=== PATIENT | female | born 1940 | race Caucasian/White ===

== ENCOUNTER → 2016-08-09 | Outpatient (CLI) | payer MEDICARE, OTHER | END | disposition home or self-care (01) | LOC: GMAJ 12:59 | PROVIDERS: ATTEND Family Medicine | DX: E03.9 Hypothyroidism, unspecified (principal) ==

== ENCOUNTER 2016-10-28 05:42 | Day surgery (SDC) | payer MEDICARE, OTHER ==
[2016-10-28] MEDS ORDERED: LIDOCAINE 1% MPF 5 ML VIAL ONE ×2 (10:15→10:28)
[2016-10-28] MEDS ORDERED: SODIUM CHLORIDE 0.9% 10 ML VIAL ONE (10:15)
[2016-10-28] MEDS ORDERED: methylPREDNISolone ACETATE 80 MG/ML VIAL ONE (10:15)
[2016-10-28] MEDS ORDERED: SODIUM BICARBONATE VIAL 50 MEQ/50 ML VIAL ONE (10:16)
[2016-10-28 14:04] VITALS: O2SAT 98
[2016-10-28 14:39] VITALS: BP 157/70; TEMP 97.2
== END 2016-10-28 14:40 | disposition home or self-care (01) ==
LOC: AMB 05:42
PROVIDERS: ATTEND Anesthesiology Pain Medicine
DX: M51.16 Intervertebral disc disorders with radiculopathy, lumbar region (principal); F32.9 Major depressive disorder, single episode, unspecified; Z79.899 Other long term (current) drug therapy
CPT/HCPCS: 62323; 76000; J1030

== ENCOUNTER → 2016-11-05 | Outpatient (CLI) | payer MEDICARE, OTHER | END | disposition home or self-care (01) | LOC: YCFC.O 15:02 | PROVIDERS: ATTEND Anesthesiology Pain Medicine | DX: Z79.891 Long term (current) use of opiate analgesic (principal) ==

== ENCOUNTER 2016-11-18 12:27 | Day surgery (SDC) | payer MEDICARE, OTHER ==
[2016-11-18] MEDS ORDERED: methylPREDNISolone ACETATE 80 MG/ML VIAL INJ ONE ×2 (14:28→14:31)
[2016-11-18] MEDS ORDERED: LIDOCAINE 1% MPF 5 ML VIAL INJ ONE ×3 (14:28→14:31)
[2016-11-18] MEDS ORDERED: SODIUM CHLORIDE 0.9% 10 ML VIAL INJ ONE (14:31)
[2016-11-18 14:47] VITALS: BP 158/81; TEMP 98.4; O2SAT 97
== END 2016-11-18 14:45 | disposition home or self-care (01) ==
LOC: AMB 12:27 → EDSTATUS 13:00 → AMB 14:45
PROVIDERS: ATTEND Anesthesiology Pain Medicine
DX: M51.16 Intervertebral disc disorders with radiculopathy, lumbar region (principal); M48.06 Spinal stenosis, lumbar region; M79.1 Myalgia; F32.9 Major depressive disorder, single episode, unspecified; E07.9 Disorder of thyroid, unspecified; Z79.899 Other long term (current) drug therapy
CPT/HCPCS: 20552; 62323; J1030

== ENCOUNTER → 2017-02-17 | Outpatient (CLI) | payer MEDICARE, OTHER ==
--- NOTE | 2017-02-17 09:03 | MRI ---
Study: MRI of the Lumbar Spine. Indication: SPINAL STENOSIS Technique: Multiplanar, multi sequence MRI of the lumbar spine was obtained without intravenous contrast. Comparison: February 23, 2016. FINDINGS: The designated L5-S1 disc space level is visualized on axial T2 image 3. Vertebral body height maintained. No acute fracture. Levoscoliosis lumbar spine. No marrow infiltrating lesion. Conus medullaris unremarkable. L1-L2: Severe disc space height loss and disc desiccation. Grade 1 retrolisthesis. Patchy Modic type I endplate changes. 4 mm disc osteophyte complex and moderate bilateral facet arthrosis. Stable mild bilateral neural foraminal narrowing. No spinal canal narrowing. L2-L3: Severe right lateral disc space height loss and disc desiccation. Trace retrolisthesis. 4 mm right eccentric disc osteophyte complex. Moderate to severe right right and moderate left neural foraminal narrowing. Stable mild spinal canal narrowing. L3-L4: Moderate disc space height loss and disc desiccation. 3 mm disc bulge. Moderate right and mild left neural foraminal narrowing. Moderate bilateral facet arthrosis and ligamentum flavum buckling. Stable moderate to severe right and moderate left neural foraminal narrowing as well as moderate spinal canal narrowing. L4-L5: Severe posterior disc space height loss and disc desiccation. Trace retrolisthesis. 5 mm disc osteophyte complex. Moderate bilateral facet arthrosis. Stable moderate to severe spinal canal narrowing with moderate left and mild right lateral recess narrowing. Stable moderate bilateral neural foraminal narrowing. L5-S1: Severe disc space height loss and disc desiccation. Grade 1 anterolisthesis. 6 mm disc uncovering. Stable moderate to severe spinal canal narrowing. Severe bilateral facet arthrosis. Stable moderate to severe bilateral neural foraminal narrowing. IMPRESSION: Stable multilevel lumbar disc disease as detailed above. Electronically signed by: Estuardo Olsen MD 02/17/2017 9:01 AM CDT
== END ==
LOC: MRI 14:38
PROVIDERS: ATTEND Family Medicine
DX: M48.06 Spinal stenosis, lumbar region (principal); M51.86 Other intervertebral disc disorders, lumbar region

== ENCOUNTER → 2017-05-05 | Outpatient (CLI) | payer MEDICARE, OTHER ==
--- NOTE | 2017-05-07 09:35 | MAM ---
EXAM DESCRIPTION: 3D Screening BILATERAL : Digital Mammography. CLINICAL HISTORY: 76 years Female ANNUAL SCREENING . No complaints. Sister with breast cancer. Hysterectomy 1987. Has taken HRT more than 5 years ago.. Bilateral cyst aspiration and biopsy. Bilateral lumpectomies. COMPARISON: 2-D digital screening bilateral studies 04/16/2016 and 04/13/2015.. Report from prior examination also reviewed. TECHNIQUE: Bilateral CC and MLO projection full-field images, 3-D tomosynthesis digital mammographic technique. Also bilateral synthesized CC/ MLO full-field images. CAD not utilized. FINDINGS: The breast parenchymal density pattern is: Heterogeneously dense breast tissue, which may obscure small masses. No skin thickening or nipple retraction bilateral solitary microcalcifications and vascular calcifications. No focal, stellate mass or density, focal asymmetry , and no suspicious microcalcifications bilaterally. Stable mammograms compared to prior study, taking into account differences in mammographic technique IMPRESSION: BI-RADS CATEGORY: 2 - BENIGN FINDINGS. FOLLOW UP: Routine digital bilateral screening, one year interval from April 2017. Written communication explaining the IMPRESSION and follow-up, will be mailed to the patient and referring health care provider. According to the [employer], yearly mammograms are recommended starting at age 40 and continuing as long as a woman is in good health. Any breast change noted on a breast self-exam should be reported promptly to the patient's healthcare provider. Breast MRI is recommended for women with an approximately 20-25% or greater lifetime risk of breast cancer, including women with a strong family history of breast or ovarian cancer and women who have been treated for Hodgkin's disease. A negative mammographic report should not delay tissue diagnosis in patients with significant clinical history or physical findings. Extremely dense breast tissue limits the sensitivity of digital mammography. Electronically signed by: Johnny Patel MD 05/07/2017 9:33 AM SR. CONSULTANT
== END ==
LOC: MAMMO 11:25
PROVIDERS: ATTEND Family Medicine
DX: Z12.31 Encounter for screening mammogram for malignant neoplasm of breast (principal)
CPT/HCPCS: 77063; G0202

== ENCOUNTER → 2017-11-06 | Outpatient (CLI) | payer MEDICARE, OTHER | LOC: GMAJ 10:52 | PROVIDERS: ATTEND Family Medicine | DX: E03.9 Hypothyroidism, unspecified (principal) ==

== ENCOUNTER → 2018-02-21 | Outpatient (CLI) | payer MEDICARE, OTHER | LOC: GMATM 15:26 | PROVIDERS: ATTEND Nurse Practitioner Family | DX: N39.0 Urinary tract infection, site not specified (principal) ==

== ENCOUNTER → 2018-06-11 | Outpatient (CLI) | payer MEDICARE, OTHER ==
--- NOTE | 2018-06-11 15:48 | RAD ---
EXAM DESCRIPTION: UGI: Rad-Fluoroscopy. CLINICAL HISTORY: DYSPHAGIA . Symptoms since cervical fusion surgery January 2018 and lumbar surgery February 2018. COMPARISON: None. TECHNIQUE: Preliminary AP special procedures nurse radiograph. The patient tended to swallow barium pill with water, without success The patient swallowed gas-producing granules, water, and heavy density barium under fluoroscopic visualization. The images were obtained with the patient standing and horizontal. Patient drank medium density barium through a straw in the semi-prone position. 105 fluoroscopic cine loop images (9 runs). 11 static fluoroscopic images. Total fluoroscopy time was 3.6 minutes. DAP: 14.7 Gy-cm2.. 80.2 mGy. FINDINGS: Anterior cervical fusion construct at C4-C6. No significant soft tissue swelling anterior to the fusion hardware. Patient swallowed barium with minimal difficulty. Minimal laryngeal penetration but no aspiration. Patient had to swallow 2 additional times after initial bolus. Residual seen in the right piriform sinus after multiple swallows. Significant narrowing is noted in the proximal esophagus at the C5-6 and C6 level on every swallow. This narrowing is more AP than transverse. No radiodensities in the soft tissue around the luminal narrowing. No fistulas associated with this narrowing. Primary peristaltic wave seen in the proximal two thirds of the esophagus with secondary contractions in the distal third. Small sliding hiatal hernia. Significant gastroesophageal reflex when patient tilted from upright position to supine position on the fluoroscopic table. Reflux to the level of the thoracic inlet. There was also moderate amount of reflux when rolling from prone to supine and supine to prone. Minimal mucosal irregularity in the distal esophagus. No mass effect. Stomach is well-distended with gas and contrast. No significant mucosal lesions and no mass effect. Duodenal bulb and proximal most duodenum well distended with gas and contrast material. No intrinsic lesions or mass effect. IMPRESSION: 1. Patient demonstrated difficulty swallowing a medium-sized pill. 2. Pharyngeal penetration was noted with swallowing of medium density barium. No aspiration. 3. Patient required several swallows to empty the oral cavity. Residual seen in the right piriform sinus. 4. Circumferential narrowing in the proximal esophagus, more in the AP axis dimension than the transverse axis, at the level of the C5-6 disc space and C6 vertebral body. No abnormal radiodense objects in the soft tissues and no fistulous. Anterior fusion construct C4-C6. 5. Almost complete primary peristaltic wave with secondary contractions in the distal third of the esophagus. Mild mucosal irregularities. No mass effect. Small sliding hiatal hernia. Marked gastroesophageal reflux when going from upright to horizontal position and also when rolling in the horizontal position. 6. No significant abnormalities in the stomach or duodenum. Electronically signed by: Johnny Patel MD 06/11/2018 3:47 PM [facility]
== END ==
LOC: RAD 08:53
PROVIDERS: ATTEND Family Medicine
DX: R13.10 Dysphagia, unspecified (principal); K21.9 Gastro-esophageal reflux disease without esophagitis; K44.9 Diaphragmatic hernia without obstruction or gangrene

== ENCOUNTER → 2018-09-30 | Outpatient (CLI) | payer MEDICARE, OTHER ==
--- NOTE | 2018-10-05 17:18 | MAM ---
EXAM DESCRIPTION: 3D Screening BILATERAL : Digital Mammography. CLINICAL HISTORY: 78 years Female SCREEN . No complaints. Sister with breast cancer. Childbirth. Hysterectomy 1987. HRT 5 or more years ago. Bilateral cyst aspiration and biopsy. Lifetime risk of developing breast cancer (Tyrer-Cuzick model)(%): 9.3. COMPARISON: Bilateral screening digital breast tomosynthesis 05/05/2017. TECHNIQUE: Bilateral CC and MLO projection full-field images, digital tomosynthesis mammographic technique. Bilateral digital 2-D full-field MLO images. CAD not available for tomosynthesis or 2-D images. FINDINGS: The breast parenchymal density pattern is: Heterogeneously dense breast tissue, which may obscure small masses. No skin thickening or nipple retraction. Bilateral solitary microcalcifications scattered within the dense breast tissue. Bilateral vascular calcifications. No new focal, stellate mass or density, focal asymmetry , and no suspicious microcalcifications bilaterally. Stable mammograms compared to prior study. IMPRESSION: Benign exam. BIRAD CATEGORY: 2 BENIGN FINDINGS. RECOMMENDATIONS: FOLLOW UP: Routine digital bilateral mammographic screening, one year interval from September 2018. Written communication explaining the IMPRESSION and follow-up, will be mailed to the patient and referring health care provider. The FINDINGS and the FOLLOW-UP plan were reviewed in person with the patient after the examination. According to the [employer], yearly mammograms are recommended starting at age 40 and continuing as long as a woman is in good health. Any breast change noted on a breast self-exam should be reported promptly to the patient's healthcare provider. Breast MRI is recommended for women with an approximately 20-25% or greater lifetime risk of breast cancer, including women with a strong family history of breast or ovarian cancer and women who have been treated for Hodgkin's disease. A negative mammographic report should not delay tissue diagnosis in patients with significant clinical history or physical findings. Extremely dense breast tissue limits the sensitivity of digital mammography. Electronically signed by: Johnny Patel MD 10/05/2018 5:16 PM CDT
== END ==
LOC: MAMMO 11:44
PROVIDERS: ATTEND Family Medicine
DX: Z12.31 Encounter for screening mammogram for malignant neoplasm of breast (principal)

== ENCOUNTER → 2019-02-01 | Outpatient (CLI) | payer MEDICARE, OTHER | LOC: GMAJ 10:26 | PROVIDERS: ATTEND Family Medicine | DX: E03.9 Hypothyroidism, unspecified (principal); Z79.899 Other long term (current) drug therapy ==

== ENCOUNTER → 2020-02-04 | Outpatient (CLI) | payer MEDICARE, OTHER | LOC: GMAJ 11:57 | PROVIDERS: ATTEND Family Medicine | DX: E03.8 Other specified hypothyroidism (principal); Z79.899 Other long term (current) drug therapy ==

== ENCOUNTER → 2020-02-11 | Outpatient (CLI) | payer MEDICARE, OTHER ==
--- NOTE | 2020-02-15 11:58 | MAM ---
EXAM DESCRIPTION: 3D Screening BILATERAL : Digital Mammography. CLINICAL HISTORY: 79 years Female ANNUAL SCREENING . No complaints. Female sibling and remote family history of breast cancer. Age unknown. Menarche age 11. Childbirth age 22. Hysterectomy age unknown. Bilateral breast biopsies benign. HRT unknown duration.. Lifetime risk of developing breast cancer (Tyrer-Cuzick model)(%): 5.9. COMPARISON: Bilateral screening digital breast tomosynthesis September 2018 and April 2017.. TECHNIQUE: Bilateral CC and MLO projection full-field images, digital tomosynthesis mammographic technique. Bilateral digital 2-D full-field MLO images. CAD available for 2-D images. FINDINGS: The breast parenchymal density pattern is: Heterogeneously dense breast tissue, which may obscure small masses. No skin thickening or nipple retraction. Skin mole markers bilaterally. Solitary microcalcifications. Vascular calcifications. No new focal, stellate mass or density, focal asymmetry , and no suspicious microcalcifications bilaterally. Stable mammograms compared to prior study. IMPRESSION: Benign exam. BIRAD CATEGORY: 2 BENIGN FINDINGS. RECOMMENDATIONS: FOLLOW UP: Routine digital bilateral mammographic screening, one year interval from January 2020. Written communication explaining the IMPRESSION and follow-up, will be mailed to the patient and referring health care provider. According to the [employer], yearly mammograms are recommended starting at age 40 and continuing as long as a woman is in good health. Any breast change noted on a breast self-exam should be reported promptly to the patient's healthcare provider. Breast MRI is recommended for women with an approximately 20-25% or greater lifetime risk of breast cancer, including women with a strong family history of breast or ovarian cancer and women who have been treated for Hodgkin's disease. A negative mammographic report should not delay tissue diagnosis in patients with significant clinical history or physical findings. Extremely dense breast tissue limits the sensitivity of digital mammography. Electronically signed by: Johnny Patel MD 02/15/2020 11:57 AM CDT
== END ==
LOC: MAMMO 11:15
PROVIDERS: ATTEND Family Medicine
DX: Z12.31 Encounter for screening mammogram for malignant neoplasm of breast (principal)

== ENCOUNTER → 2020-02-24 | Outpatient (CLI) | payer MEDICARE, OTHER ==
--- NOTE | 2020-02-24 22:42 | US ---
EXAM DESCRIPTION: Soft Tissue,Head/Neck CLINICAL HISTORY: 79 years Female, NONTOXIC GOITER UNSPEC. COMPARISON: Ultrasound thyroid 03/30/2014. FINDINGS: Size right thyroid lobe: 5.0 x 2.3 x 2.1 cm Size left thyroid lobe: 5.7 x 2.4 x 2.0 cm Size isthmus: 0.8 cm Thyroid parenchyma demonstrates heterogeneous echogenicity. Estimated total number of nodules greater than or equal to 1 cm: Nodule 1: Size: 1.0 x 1.1 x 1.0 cm Location: Isthmus Composition: solid or almost completely solid: 2 points Echogenicity: hypoechoic: 2 points Shape: wider than tall: 0 points Margins: ill-defined: 0 points Echogenic foci: none: 0 points ACR Total Points: 4; ACR TI-RADS risk category: TR4 - moderately suspicious nodule. IMPRESSION: 1. Nodule 1: ACR TI-RADS 2017 Category 4. Recommend: Follow-up ultrasound in 1 year. ACR TI-RADS 2017 Recommendations: TR1: No FNA or follow up TR2: No FNA or follow up TR3: FNA if >/= 2.5 cm, follow up if 1.5 - 2.4 cm in 1, 3, and 5 years TR4: FNA if >/= 1.5 cm, follow up if 1.0 - 1.4 cm in 1, 2, 3, and 5 years TR5: FNA if >/= 1.0 cm, follow up if 0.5 - 0.9 cm every year for 5 years *ACR TI-RADS recommends that no more than two nodules with the highest ACR TI-RADS total point should be biopsied and no more than four nodules should be followed. Electronically signed by: Alek Greer MD 02/24/2020 10:40 PM CDT
== END ==
LOC: US 09:28
PROVIDERS: ATTEND Family Medicine
DX: E04.9 Nontoxic goiter, unspecified (principal); E04.1 Nontoxic single thyroid nodule